=== PATIENT | male | born 1985 | race Caucasian/White ===

== ENCOUNTER → 2016-04-04 | Outpatient (CLI) | payer OTHER ==
[~2016-04-04] MED LIST: CHLO1.4S2 MT; CIPR-250 PO; EXCETAB80 PO; NORC5TAB PO
--- NOTE | 2016-04-04 09:15 | REP ---
Clinical: Spondylosis. Technique: AP, lateral, flexion/extension, swimmer's, open-mouth, bilateral oblique views. Comparison: 12/17/2015. Findings: The patient is noted to be status post anterior fusion at the C4-5 level. Alignment and overall appearance to the cervical spine is essentially unchanged. Moderate multilevel degenerative changes noted including anterior spurring and endplate sclerosis. There is no evidence for subluxation. Open mouth view demonstrates normal C1-C2 articulation and odontoid process. Oblique views demonstrate stable appearance to the neural foramen bilaterally. Impression: Status post anterior fusion. Moderate multilevel degenerative changes and overall appearance essentially stable compared to 12/17/2015. Signed by Ramos Pryor MD 04/04/2016 09:07 A
== END ==
LOC: M RAD 08:21
PROVIDERS: ATTEND Neurological Surgery
DX: M50.320 Other cervical disc degeneration, mid-cervical region, unspecified level (principal); M47.892 Other spondylosis, cervical region